=== PATIENT | male | born 1975 | race American Indian/Alaskan Native ===

== ENCOUNTER 2018-05-10 07:25 | Emergency (ER) | payer MEDICAID ==
[2018-05-10 07:27] VITALS: BMI 22.4
[2018-05-10] MEDS ORDERED: Lactated Ringer's 1,000 ML IV STA (07:57)
[2018-05-10] MEDS ORDERED: Labetalol 25mg/5ml Syringe IVP STA (07:58)
[2018-05-10] MEDS ORDERED: Lactated Ringer's 1,000 ML ONE (08:32)
[2018-05-10] MEDS ORDERED: Labetalol 5mg/ml (4ml) ONE (08:32)
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
[2018-05-10 09:23] LABS: BASO % 0.5 % (0.0-2.0); EOS # 0.1 K/uL (0.0-0.7); EOS % 0.9 % (0.0-4.0); HEMOGLOBIN 11.5 g/dL (12.0-18.0); LYMPH # 1.6 K/uL (1.0-4.3); LYMPH % 25.5 % (20.0-40.0); MEAN CELL VOLUME 74.7 fL (80.0-94.0); MEAN CORPUSCULAR HEMOGLOBIN 24.2 pg (27.0-31.0); MEAN CORPUSCULAR HGB CONC 32.4 g/dL (33.0-37.0); MEAN PLATELET VOLUME 7.9 fL (7.2-11.7); MONO # 0.6 K/uL (0.0-0.8); MONO % 9.9 % (0.0-10.0); NEUT % 63.2 % (50.0-75.0); RBC 4.77 Mil/uL (4.40-5.90); RED CELL DISTRIBUTION WIDTH 20.7 % (11.5-14.5); WHITE BLOOD COUNT 6.3 K/uL (4.8-10.8)
[2018-05-10 11:16] LABS: ALBUMIN 4.5 g/dL (3.5-5.0); ALT/SGPT 29 U/L (21-72); AST/SGOT 42 U/L (17-59); BLOOD UREA NITROGEN 14 mg/dL (9-20); CALCIUM 9.3 mg/dl (8.6-10.4); GFR NON-AFRICAN AMERICAN > 60
[2018-05-10 16:21] LABS: SQUAMOUS EPITHIAL < 1 /hpf (0-5); URINE BILIRUBIN NEGATIVE (NEGATIVE); URINE BLOOD NEGATIVE (NEGATIVE); URINE CLARITY Clear (Clear); URINE COLOR Yellow (YELLOW); URINE GLUCOSE (UA) NORMAL (Normal); URINE LEUKOCYTE ESTERASE NEG Leu/uL (Negative); URINE PROTEIN 1+ mg/dL (NEGATIVE)
[2018-05-10 16:33] LABS: BARBITURATES, UR NEGATIVE (NEGATIVE); BENZODIAZEPINES, UR NEGATIVE (NEGATIVE); OPIATES, UR NEGATIVE (NEGATIVE)
[2018-05-10 17:06] LABS: PHENCYCLIDINE, UR POSITIVE (NEGATIVE)
[2018-05-10 18:55] VITALS: BP 164/99; PULSE 79; RESP 20; TEMP 98.2; O2SAT 100
== END 2018-05-10 20:00 | disposition home or self-care (01) ==
LOC: C.ER 07:25
DX: I10 Essential (primary) hypertension (principal); F16.10 Hallucinogen abuse, uncomplicated
CPT/HCPCS: 80053; 80320; 80324; 80345; 80346; 80349; 80353; 80358; 80361; 81001; 82550; 82948; 83735; 83992; 84100; 85025; 96374; 99285; J7120

== ENCOUNTER 2018-05-11 01:27 | Emergency (ER) | payer MEDICAID ==
[2018-05-11 01:27] VITALS: BMI 22.4
[2018-05-11 01:51] VITALS: RESP 20
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
[2018-05-11 06:01] VITALS: BP 131/73; PULSE 88; TEMP 98.3; O2SAT 99
== END 2018-05-11 06:01 | disposition home or self-care (01) ==
LOC: C.ER 01:27
DX: Z59.0 Homelessness (principal); I10 Essential (primary) hypertension